=== PATIENT | female | born 1970 | race Caucasian/White ===

== ENCOUNTER 2021-10-29 00:04 | Emergency (ER) | payer OTHER ==
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
[2021-10-29 00:42] LABS: Absolute Neutrophil Ct (ANC) 7.87 (1.4-6.9); Basophil (Absolute #) 0.06 (0-0.4); Eosinophil % 1.5 % (0.00-5.0); Eosinophil (Absolute #) 0.15 (0-0.5); Hematocrit 40.6 % (35-47); Lymphocyte (Absolute #) 1.56 (1.0-4.6); Lymphocytes % 15.1 % (24.0-44.0); Mean Corpuscular Hemoglobin 30.1 pg (26-32); Mean Platelet Volume 9.4 fl (7.5-11.0); Monocyte (Absolute #) 0.68 (0.0-1.3); Monocytes % 6.6 % (0.0-12.0); Neutrophil % 76.2 % (36.0-66.0); Platelet Count 263 K/mm3 (150-450); Red Blood Count 4.32 M/mm3 (4.1-5.4); Red Cell Distribution Width 13.2 % (11.5-14.0); White Blood Count 10.3 K/mm3 (4.0-10.5)
[2021-10-29 00:53] LABS: ACETAMINOPHEN < 10 ug/ml (10-30); ALBUMIN 4.5 g/dL (3.5-5.0); ALKALINE PHOSPHATASE 62 U/L (38-126); ANION GAP 17.4 MEQ/L (5-15); BLOOD UREA NITROGEN 6 mg/dL (7-17); CHLORIDE 107 mmol/L (98-107); Calcium 9.5 mg/dL (8.4-10.2); Carbon Dioxide 19 mmol/L (22-30); Creatinine 1 0.55 mg/dL (0.52-1.04); EST GLOMERULAR FILTRATION RATE > 60.0 ML/MIN; ETHYL ALCOHOL 130 mg/dL (0-10); Glucose 114 mg/dL (74-106); Potassium 3.6 mmol/L (3.5-5.1); SALICYLATE < 1.0 mg/dL (2-20); SGOT/AST 20 U/L (14-36); SGPT/ALT 14 U/L (0-35); SODIUM 140 mmol/L (137-145); Total Protein 6.9 g/dL (6.3-8.2)
[2021-10-29 01:11] LABS: Bacteria RARE /HPF (NEGATIVE); Epithelial Cells RARE /HPF (FEW); RBC 0-2 /HPF (0-2)
[2021-10-29 01:12] LABS: Appearance CLEAR (CLEAR); Bilirubin NEGATIVE (NEGATIVE); Glucose NEGATIVE (NEGATIVE); Ketones NEGATIVE (NEGATIVE); Ph 6.5 (5-6); RBC NEGATIVE Ery/ul (0-5); Specific Gravity <=1.005 (1.005-1.025)
[2021-10-29 01:13] LABS: Dipstick done @ ? MAIN LAB; Nitrite NEGATIVE (NEGATIVE); Protein,Urine Dip NEGATIVE (Negative); Urine Cultured Indicated? NO; Urobilinogen 0.2 mg/dL (0-1)
[2021-10-29 01:16] LABS: INFLUENZA A NEGATIVE (NEGATIVE); INFLUENZA B NEGATIVE (NEGATIVE); RESPIRATORY SYNCTIAL VIRUS NEGATIVE (Negative); SARS-CoV-2 Xpert Express NEGATIVE (NEGATIVE)
[2021-10-29 01:20] LABS: Amphetamine,Urine NEGATIVE (NEGATIVE); Barbiturate,Urine NEGATIVE (NEGATIVE); Benzodiazepine,Urine NEGATIVE (NEGATIVE); Cocaine,Urine NEGATIVE (NEGATIVE); Methadone,Urine NEGATIVE (NEGATIVE); Opiate,Urine NEGATIVE (NEGATIVE); PCP,Urine NEGATIVE (NEGATIVE); THC,Urine NEGATIVE (NEGATIVE)
[2021-10-29] MEDS ORDERED: TYLENOL 325 MG PO STA (06:05)
[2021-10-29] MEDS ORDERED: TYLENOL 325 MG ONE (06:06)
[2021-10-29 10:33] VITALS: BP 110/71; PULSE 99; O2SAT 98
== END 2021-10-29 10:49 ==
LOC: ED 00:04
DX: R45.851 Suicidal ideations (principal); F10.120 Alcohol abuse with intoxication, uncomplicated; Y90.6 Blood alcohol level of 120-199 mg/100 ml; Z63.5 Disruption of family by separation and divorce; Z63.0 Problems in relationship with spouse or partner
CPT/HCPCS: 0241U; 36415; 80053; 80178; 80307; 81015; 85025; 93005; 99285; A9270-GY; G0480